=== PATIENT | female | born 1990 | race Caucasian/White ===

== ENCOUNTER 2018-04-10 13:34 | Emergency (ER) | payer SELFPAY, BC ==
[2018-04-10 14:48] LABS: URINE HCG POC HCG NEGATIVE (Negative)
[2018-04-10] MEDS: IBUPROFEN 800 MG TABLET. PO (16:22)
[2018-04-10] MEDS: HYDROcodone/APAP 5/325MG 1 TAB TABLET PO (16:23)
== END 2018-04-10 16:30 | disposition home or self-care (01) ==
LOC: ER 13:34
DX: S09.90XA Unspecified injury of head, initial encounter (principal); F41.9 Anxiety disorder, unspecified; F17.210 Nicotine dependence, cigarettes, uncomplicated; W01.0XXA Fall on same level from slipping, tripping and stumbling without subsequent striking against object, initial encounter; Y93.89 Activity, other specified; Y92.89 Other specified places as the place of occurrence of the external cause; Y99.8 Other external cause status
CPT/HCPCS: 70450; 81025; 99284

== ENCOUNTER 2020-12-14 20:31 | Emergency (ER) | payer OTHER ==
[~2020-12-14] VITALS: Ht 167.6 cm; Wt 95.5 kg
--- NOTE | 2020-12-14 20:57 | PHYS DOC ---
Past Medical History Past Medical History: Anxiety (TRICIA MCKNIGHT APRN) Past Surgical History: No Surgical History (TRICIA MCKNIGHT APRN) Smoking Status: Current Every Day Smoker Alcohol Use: None Drug Use: None (TRICIA MCKNIGHT APRN) General Adult EDM: Chief Complaint: HEADACHE HPI: HPI: Patient is a 30 year old female who presents with headache to the top of her head as a squeezing type pain and a tight chest with some shortness of breath. She states she took a sumatriptan about an hour before arrival. She states when the pain started she took it. She has a history of migraine, GERD, anxiety, smoker. She rating her pain a 9 out of 10 and states this is one of the worst headache she is ever had before. She states this is not the usual spot that she has a headache but the last migraine she had was more so on the left side of her face and head. Patient is also having vomiting x1. She has some blurred vision of which she states she usually gets with her migraines also. Patient denies neck pain, neck stiffness, fever, syncope, dizziness, numbness or tingling, focal weakness, abdominal pain, diarrhea, back pain. (TRICIA MCKNIGHT BARREL PLANER) Review of Systems: Review of Systems: Constitutional: Denies fever or chills. [] Eyes: Denies change in visual acuity. [] HENT: Denies nasal congestion or sore throat. [] Respiratory: Denies cough. +shortness of breath. [] Cardiovascular: + chest tightness pain or denies edema. [] GI: Denies abdominal pain. + nausea, +vomiting, denies bloody stools or diarrhea. [] : Denies dysuria. [] Musculoskeletal: Denies back pain or joint pain. [] Integument: Denies rash. [] Neurologic: + headache, denies focal weakness or sensory changes. [] Endocrine: Denies polyuria or polydipsia. [] Lymphatic: Denies swollen glands. [] Psychiatric: Denies depression or anxiety. [] (TRICIA MCKNIGHT APRN) Heart Score: HEART Score for Chest Pain: HEART Score for Chest Pain Response (Comments) Value History Slighlty/Non-Suspicious 0 ECG Normal 0 Age < 45 0 Risk Factors 1 or 2 Risk Factors 1 Troponin < Normal Limit 0 Total 1 Risk Factors: Risk Factors: DM, Current or recent (<one month) smoker, HTN, HLP, family history of CAD, obesity. Risk Scores: Score 0 - 3: 2.5% MACE over next 6 weeks - Discharge Home Score 4 - 6: 20.3% MACE over next 6 weeks - Admit for Clinical Observation Score 7 - 10: 72.7% MACE over next 6 weeks - Early Invasive Strategies (TRICIA MCKNIGHT APRN) Allergies: Allergies: Allergies Coded Allergies Type Severity Reaction Last Updated Verified No Known Drug Allergies 04/10/18 No (TRICIA MCKNIGHT APRN) Physical Exam: PE: Constitutional: Well developed, well nourished, no acute distress, non-toxic appearance. [] HENT: Normocephalic, atraumatic, bilateral external ears normal, oropharynx moist, no oral exudates, nose normal. [] Eyes: PERRLA, EOMI, conjunctiva normal, no discharge. [] Neck: Normal range of motion, no tenderness, supple, no stridor. [] Cardiovascular:Heart rate regular rhythm, no murmur [] Lungs & Thorax: Bilateral breath sounds clear to auscultation [] Abdomen: Bowel sounds normal, soft, no tenderness, no masses, no pulsatile masses. [] Skin: Warm, dry, no erythema, no rash. [] Back: No tenderness, no CVA tenderness. [] Extremities: No tenderness, no cyanosis, no clubbing, ROM intact, no edema. [] Neurologic: Alert and oriented X 3, normal motor function, normal sensory function, no focal deficits noted. [] Psychologic: Affect normal, judgement normal, mood normal. Normal physical exam [] (TRICIA MCKNIGHT APRN) EKG: EK AND READ BY DR MEMBRENO SINUS RHYTHM AND NO STEMI[] ([employer] [facility]IN[facility]IA JAMESON APRN) Radiology/Procedures: Radiology/Procedures: [] Impression: [facility] [address] [place] [address] IMAGING REPORT Signed PATIENT: YAMEL MARTINEZ NACCOUNT: [id number] : 1990 LOCATION: ER AGE: 30 SEX: F EXAM STATUS: PRE ER ORD. PHYSICIAN: TRICIA MCKNIGHT APRN REASON: CHEST TIGHTNESS, SOA PROCEDURE: PORTABLE CHEST 1V Exam: Chest one view INDICATION: Chest tightness TECHNIQUE: Frontal view of the chest Comparisons: None FINDINGS: The cardiomediastinal silhouette and pulmonary vessels are within normal limits. The lung and pleural spaces are clear. IMPRESSION: No acute cardiopulmonary process. Electronically signed by: Lucian Hernandez MD (12/14/2020 10:38 PM) [facility] DICTATED and SIGNED BY: LUCIAN HERNANDEZ MD DATE: 12/14/20 [id number] (TRICIA MCKNIGHT APRN) Radiology/Procedures: IMAGING REPORT Signed PATIENT: YAMEL MARTINEZ NACCOUNT: [id number] : 1990 LOCATION: ER AGE: 30 SEX: F EXAM STATUS: PRE ER ORD. PHYSICIAN: TRICIA MCKNIGHT APRN REASON: worst headache of her life PROCEDURE: CT HEAD WO CONTRAST Exam: CT head INDICATION: Worst headache of her life TECHNIQUE: Sequential axial images through the head were obtained without the administration of IV contrast. Comparisons: None FINDINGS: No focal parenchymal lesion or hemorrhage is identified. There is no midline shift or sulcal effacement. No acute vascular territory infarction is identified. Foreman-white distinction is preserved. The ventricular system is within normal limits without compression hydrocephalus. The basal cisterns are well maintained. The visualized portions of the paranasal sinuses and mastoid air cells are well- pneumatized. No acute fractures. IMPRESSION: No acute intracranial abnormality. Exposure: One or more of the following in the visualized dose reduction techniques were utilized for this examination: 1. Automated exposure control 2. Adjustment of the MA and/or KV according to patient size Use of iterative of reconstructive technique Electronically signed by: Lucian Hernandez MD (12/14/2020 11:21 PM) [facility] DICTATED and SIGNED BY: LUCIAN HERNANDEZ MD DATE: 12/14/20 [id number] IMAGING REPORT Signed PATIENT: YAMEL MARTINEZ NACCOUNT: [id number] : 1990 LOCATION: ER AGE: 30 SEX: F EXAM STATUS: PRE ER ORD. PHYSICIAN: TRICIA MCKNIGHT APRN REASON: CHEST TIGHTNESS, SOA PROCEDURE: PORTABLE CHEST 1V Exam: Chest one view INDICATION: Chest tightness TECHNIQUE: Frontal view of the chest Comparisons: None FINDINGS: The cardiomediastinal silhouette and pulmonary vessels are within normal limits. The lung and pleural spaces are clear. IMPRESSION: No acute cardiopulmonary process. Electronically signed by: Lucian Hernandez MD (12/14/2020 10:38 PM) [facility] DICTATED and SIGNED BY: LUCIAN HERNANDEZ MD DATE: 12/14/20 [id number] (MARIANA MEMBRENO DO) Course & Med Decision Making: Course & Med Decision Making Pertinent Labs and Imaging studies reviewed. (See chart for details) COVID-19 CRITERIA: The patient was evaluated during the global COVID-19 pandemic, and that diagnosis was suspected/considered upon their initial presentation. Their evaluation, treatment and testing was consistent with current guidelines for patients who present with complaints or symptoms that may be related to COVID-19. See HPI. Alert and oriented x4. Speaks in full complete sentences. Ambulatory with a steady gait. Skin pink warm and dry. No extremity edema. PERRLA. Patrick duque is able to get herself undressed and she was able to get from the bed to the wheelchair on her own. She is moving all extremities normally with normal strength. Blood work unremarkable. Chest x-ray shows no acute findings. Heart score is a 1. 2309: Patient is signed out to Dr Membreno. Patient just returned from CT scan of the head. [] (TRICIA MCKNIGHT APRN) Course & Med Decision Making 30-year-old female reevaluated, sleeping comfortably and states her headache is resolved. Patient states she has a chronic history of migraines and was seen by a neurologist in 2011 -had an MRI at that time. Has no family history of intracranial hemorrhage or aneurysms. Patient describes a gradual frontal headache that suddenly worsened abruptly when she stood up with associated nausea, vomiting and photophobia. Described as intense squeezing and pressure- like that moved to her chest. Patient states that she is on Imitrex and was told by her primary care physician to take Motrin and Benadryl with this. Reports her symptoms have completely resolved. Is requesting a medication for nausea and vomiting so that she can keep her migraine cocktail medications down. Will discharge home with strict ED return precautions were given for blurry vision, neurologic deficits, severe pain, chest pain or syncope. Encouraged urgent outpatient follow-up with PMD and neurology for outpatient management. Life-threatening processes were considered but are low suspicion at this time, given history, physical exam and ED workup. Pt was educated on all prescription medications and adverse effects. All patient's questions were answered and pt was stable at time of discharge. Life/limb-threatening differential includes but is not limited to, meningitis, e ncephalitis, intracranial hemorrhage, obstructive hydrocephaly, CVA, carbon monoxide poisoning, cerebral or cavernous venous thrombosis, hypertensive emergency, preeclampsia, giant cell arteritis, glaucoma, carotid or vertebral artery dissection, superior vena cava syndrome, infection, optic neuritis, or space-occupying lesions. I spoken with the patient and her caregivers. I explained the patient's condition, diagnoses and treatment plan based on the information available to me at this time. I have answered the patient and her caregiver's questions and addressed any concerns. The patient and her caregivers have a good understan ding of patient's diagnosis, condition and treatment plan as can be expected at this point. Vital signs have been stable. Patient's condition is stable and appropriate for discharge from the emergency department. Patient will pursue further outpatient evaluation with primary care physician or other designated or consulting physician as outlined in the discharge instructions. The patient and/or caregivers are agreeable to this plan of care and follow-up instructions have been explained in detail. The patient and/or caregivers have received these instructions in written form and have expressed an understanding of the discharge instructions. The patient and/or caregivers are aware that any significant change of condition or worsening of symptoms should prompt immediate return to this or the closest emergency department or call to 911. (MARIANA MEMBRENO DO) Adry Disclaimer: Adry Disclaimer: This electronic medical record was generated, in whole or in part, using a voice recognition dictation system. (TRICIA MCKNIGHT APRN) COVID-19 Patient Risks: Age 65 or older: No Sign of co-morbidity: Yes Exp to person + for COVID: No Exp to PUI: No Travel from affected area: No Lower respiratory symptoms: Yes Fever: No Other: Yes (HEADACHE) (TRICIA MCKNIGHT APRN) PPE Use: Full PPE with N95 mask or PAPR: Yes (TRICIA MCKNIGHT APRN) NIHSS Stroke Scale NIH Stroke Scale: NIH Stroke Scale Response (Comments) Value Level of Consciousness: 0 Alert/Responsive 0 LOC Questions: 0 Answers both correctly 0 LOC Commands: 0 Performs both tasks 0 Best Gaze: 0 Normal 0 Visual: 0 No visual loss 0 Facial Palsy: 0 Normal, symmetrical 0 Motor - Left Arm 0 No drift 0 Motor - Right Arm 0 No drift 0 Motor - Left Leg 0 No drift 0 Motor: Right Leg 0 No drift 0 Limb Ataxia: 0 Absent 0 Sensory: 0 No loss 0 Best Language: 0 Normal 0 Dysathria: 0 Normal 0 Extinction and Inattention: 0 Normal 0 Total 0 Departure Departure Impression: Primary Impression: Headache Qualified Codes: R51.9 - Headache, unspecified Additional Impression: Tightness in chest Disposition: 01 DC HOME SELF CARE/HOMELESS Condition: STABLE Referrals: UNKNOWN PCP NAME (PCP) FOLLOW UP WITH FAMILY MEDICINE: Family Medicine Address: [address] [facility] [address] [place] [address] Patient Instructions: General Headache Without Cause, Migraine Headache Additional Instructions: FOLLOW UP WITH NEUROLOGY: [facility] Address: [address] [place] [address] EMERGENCY DEPARTMENT GENERAL DISCHARGE INSTRUCTIONS Thank you for coming to [facility] Emergency Department (ED) today and trusting us with you care. We trust that you had a positive experience in our Emergency Department. If you wish to speak to the department management, you may call the Director at [phone]. YOUR FOLLOW UP INSTRUCTIONS ARE FOLLOWS: 1. Do you have a private Doctor? If you do not have a private doctor, please ask for a resource list of physicians or clinics that may be able to assist you with follow up care. 2. The Emergency Physicain has interpreted your x-rays. The X-Ray specialist will also review them. If there is a change in the findings, you will be notified in 48 hours when at all possible. 3. A lab test or culture has been done, your results will be reviewed and you will be notified if you need a change in treatment. ADDITIONAL INSTRUCTIONS AND INFORMATION: 1. Your care today has been supervised by a physician who is specially trained in emergency care. Many problems require more than one evaluation for a complete diagnosis and treatment. We recommend that you schedule your follow up appointment as corbin mmended to ensure complete treatment of you illness or injury. If you are unable to obtain follow up care and continue to have a problem, or if your condition worsens, we recommend that you return to the ED. 2. We are not able to safely determine your condition over the phone nor are we able to give sound medical advice over the phone. For these safety reasons, if you call for medical advice we will ask you to come to the ED for further evaluation. 3. If you have any questions regarding these discharge instructions please call the ED at [phone]. SAFETY INFORMATION: In the interest of safety, wellness, and injury prevention; we encourage you to wear your sealbelt, if you smoke; quite smoking, and we encourage family to use a protective helmet for bicycling and other sporting events that present an increased risk for head injury. IF YOUR SYMPTOMS WORSEN OR NEW SYMPTOMS DEVELOP, OR YOU HAVE CONCERNS ABOUT YOUR CONDITION; OR IF YOUR CONDITION WORSENS WHILE YOU ARE WAITING FOR YOUR FOLLOW UP APPOINTMENT; EITHER CONTACT YOUR PRIMARY CARE DOCTOR, THE PHYSICIAN WHOSE NAME AND NUMBER YOU WERE GIVEN, OR RETURN TO THE ED IMMEDIATELY. Scripts Ondansetron (ONDANSETRON ODT) 4 Mg Tab.rapdis 1 TAB PO PRN Q6-8HRS, #20 TAB Prov: MARIANA MEMBRENO DO 12/15/20 TRICIA MCKNIGHT BARREL PLANER Dec 14, 2020 20:57 MARIANA MEMBRENO DO Dec 15, 2020 01:15
[2020-12-14 21:00] LABS: BASO % 1 % (0-3); EOS # 0.1 x10^3/uL (0.0-0.7); EOS % 2 % (0-3); HEMATOCRIT 41.4 % (36.0-47.0); HEMOGLOBIN 14.1 g/dL (12.0-15.5); LYMPH # 3.6 x10^3/uL (1.0-4.8); LYMPH % 42 % (24-48); MEAN CORPUSCULAR HEMOGLOBIN 30 pg (25-35); MEAN CORPUSCULAR HGB CONC 34 g/dL (31-37); MEAN CORPUSCULAR VOLUME 88 fL (79-100); MONO # 0.6 x10^3/uL (0.0-1.1); MONO % 7 % (0-9); NEUT # 4.3 x10^3/uL (1.8-7.7); NEUT % 49 % (31-73); PLATELET COUNT 288 x10^3/uL (140-400); RED BLOOD COUNT 4.69 x10^6/uL (3.50-5.40); WHITE BLOOD COUNT 8.8 x10^3/uL (4.0-11.0)
[2020-12-14] MEDS ORDERED: IV NORMAL SALINE 1000ML BAG 1,000 ML IV ONE (21:00)
[2020-12-14] MEDS ORDERED: PROCHLORPERAZINE 10 MG/2 ML VIAL. IV ONE (21:00)
[2020-12-14] MEDS ORDERED: DEXAMETHASONE SOD PHOS 20 MG/5 ML VIAL. IV ONE (21:00)
[2020-12-14] MEDS ORDERED: diphenhydrAMINE 50 MG/ML VIAL IVP ONE (21:00)
[2020-12-14] MEDS ORDERED: KETOROLAC 30 MG/ML VIAL. IVP ONE (21:00)
[2020-12-14 21:08] LABS: PROTHROMBIN TIME PATIENT 12.5 SEC (11.7-14.0)
[2020-12-14 21:10] LABS: BILIRUBIN,URINE NEGATIVE (NEG); CLARITY,URINE CLEAR; COLOR,URINE YELLOW; NITRITE,URINE NEGATIVE (NEG); PROTEIN,URINE NEGATIVE (NEG-TRACE)
[2020-12-14 21:10] LABS: CALCIUM 9.4 mg/dL (8.5-10.1); CREATININE 0.8 mg/dL (0.6-1.0); GFR 84.2; POTASSIUM 3.9 mmol/L (3.5-5.1)
[2020-12-14 21:16] LABS: ALBUMIN 3.3 g/dL (3.4-5.0); ALBUMIN/GLOBULIN RATIO 0.8 (1.0-1.7); MAGNESIUM 2.1 mg/dL (1.8-2.4); TOTAL BILIRUBIN 0.1 mg/dL (0.2-1.0); TOTAL PROTEIN 7.5 g/dL (6.4-8.2)
[2020-12-14 21:19] LABS: AMORPHOUS SEDIMENT,UR PRESENT /HPF; BACTERIA,URINE FEW /HPF (0-FEW); RBC,URINE 0 /HPF (0-2)
--- NOTE | 2020-12-14 22:40 | RAD ---
Exam: Chest one view INDICATION: Chest tightness TECHNIQUE: Frontal view of the chest Comparisons: None FINDINGS: The cardiomediastinal silhouette and pulmonary vessels are within normal limits. The lung and pleural spaces are clear. IMPRESSION: No acute cardiopulmonary process. Electronically signed by: Lucian Humphreys MD (12/14/2020 10:38 PM) TESSY
--- NOTE | 2020-12-14 23:23 | RAD ---
Exam: CT head INDICATION: Worst headache of her life TECHNIQUE: Sequential axial images through the head were obtained without the administration of IV co ntrast. Comparisons: None FINDINGS: No focal parenchymal lesion or hemorrhage is identified. There is no midline shift or sulcal effaceme nt. No acute vascular territory infarction is identified. Foreman-white distinction is preserved. The ventricular system is within normal limits without compression hydrocephalus. The basal cisterns are well maintained. The visualized portions of the paranasal sinuses and mastoid air cells are well-pneumatized. No acute fractures. IMPRESSION: No acute intracranial abnormality. Exposure: One or more of the following in the visualized dose reduction techniques were utilized for this examination: 1. Automated exposure control 2. Adjustment of the MA and/or KV according to patient size Use of iterative of reconstructive technique Electronically signed by: Lucian Humphreys MD (12/14/2020 11:21 PM) [facility]
[2020-12-15] MEDS ORDERED: ONDA4TAB12 PO (01:36)
[2020-12-15 02:00] VITALS: BP 135/61
[2020-12-15] MEDS ORDERED: IOHEXOL 300 MG/ML 100ML VIAL. IV ONE (02:00)
[2020-12-15] MEDS ORDERED: CONTRAST GIVEN. MC PRN (02:00)
--- NOTE | 2020-12-15 12:05 | EKG ---
[facility] [address] [place] [address] Test Date: 2020-12-14 Test Time: 21:07:33 Pat Name: YAMEL MRATINEZ Department: Room: Gender: F Quality Control Scientist: : 1990 Requested By: TRICIA MCKNIGHT Order Number: [id number] Reading MD: Mark Osborn Measurements Intervals Irwin Rate: 60 P: 42 ME: 144 QRS: 24 QRSD: 78 T: 20 QT: 394 QTc: 398 Interpretive Statements SINUS ARRHYTHMIA Electronically Signed On 12-16-2020 9:44:33 ACADEMIC PROGRAM SPECIALIST by Mark Osborn
--- NOTE | 2020-12-16 17:13 | NUR ---
IP: Attempted to contact pt concerning COVID results. No answer. Left a voicemail to return the call.
--- NOTE | 2020-12-17 15:06 | NUR ---
IP: Attempted a second time to contact pt concerning COVID results. No answer. Left a voicemail to returnt he call.
== END 2020-12-15 02:00 | disposition home or self-care (01) ==
LOC: ER 20:31
DX: G43.909 Migraine, unspecified, not intractable, without status migrainosus (principal); Z20.822 Contact with and (suspected) exposure to COVID-19; R07.89 Other chest pain; R06.02 Shortness of breath; F41.9 Anxiety disorder, unspecified; F17.200 Nicotine dependence, unspecified, uncomplicated
CPT/HCPCS: 36415; 70450; 71045; 80053; 81001; 81025; 83735; 84484; 85025; 85610; 87086; 93005; 96361; 96374; 96375; 99285; C9803; J0780; J1100; J1200; J1885; J7030; U0003